=== PATIENT | male | born 1990 | race Caucasian/White ===

== ENCOUNTER 2024-01-14 08:34 | Emergency (ER) | payer OTHER, SELFPAY ==
--- NOTE | ~2024-01-14 | XR_ITS ---
[[id number] ] INDICATION: Right lower rib pain TECHNIQUE: Frontal projection of the upper right ribs, frontal projection of the lower ] ribs, obliqu e projection of all the right ribs, frontal inspiratory chest x-ray for interpretation. FINDINGS: There are no displaced rib fractures identified. There are no soft tissue abnormality see n. The lungs are clear. IMPRESSION: 1:No acute displaced rib fractures. Reviewed, dictated and finalized at location B.
--- NOTE | 2024-01-14 08:40 | ED.CHESTPAIN ---
HPI - Chest Pain General Chief Complaint: Back Pain/Injury Stated Complaint: Right Rib Pain Time Seen by Provider: 01/14/24 08:50 Source: patient Mode of arrival: ambulatory Limitations: no limitations History of Present Illness HPI narrative: Jose is a 33-year-old male patient presenting to the clinic today with complaints of right-sided rib pain with inspiration. He reports his symptoms started on Monday. Feels as though this is like a side stitched. Feels dull and achy when he takes a deep breath. Denies any shortness of breath or chest pain. Denies any known injury. States he was exercising earlier in the day when the symptoms started but does not feel as though it is related. Related Data Home Medications Medication Instructions Recorded Confirmed No Home Medications 01/14/24 01/14/24 Allergies Allergy/AdvReac Type Severity Reaction Status Date / Time No Known Allergies Allergy Mild Verified 01/14/24 09:08 Review of Systems Review of Systems: Pertinent positives per HPI. Patient denies any fever, chills, rash, headache, visual changes, dizziness, cough, runny nose, sore throat, shortness of breath, chest pain, palpitations, nausea, vomiting, diarrhea, constipation, abdominal pain, or any urinary issues. PMFSH Comments At the time of my signature, I reviewed and agree with the nursing past medical, surgical, social, and family history. There is no relevant family history pertinent to the patient complaint. Exam Narrative: General: Well-developed, well nourished, in no apparent distress Head: Normocephalic, atraumatic. Chest wall: Even rise and fall of the chest wall with respirations, nontender to palpation, no bruising or swelling noted Cardio: Regular rate and rhythm, s1 and s2 normal, no murmur appreciated. Resp: Clear to auscultation bilaterally, no rhonchi, rales, wheezing or rubs. Extremities: No deformity, no edema, no cyanosis, capillary refill less than 2 seconds, peripheral pulses palpable and strong. Integumentary: [place], warm, and dry, intact without lesion, no rashes. Course Course Emergency Course: Portions of this record may have been created with voice recognition software. Level of Care: Express Care Visit Vital Signs Vital signs: Vital signs reviewed MDM - Chest Pain MDM Narrative Medical decision making narrative: At the time of visit patient is resting comfortably on the exam table. Patient appears to be nontoxic. Diagnostics: X-ray of the right ribs with a PA chest was performed and is negative for any acute fractures or acute cardiopulmonary process Plan: I suspect patient has chest wall pain-likely due to strain. Supportive measures were discussed with the patient and they voiced understanding discharge instructions and agrees to treatment plan. Return precautions reviewed Differential Diagnosis Differential diagnosis: Likely fracture of rib, pneumothorax, atypical chest pain and costochondritis Discharge Plan Discharge Clinical Impression: Acute chest wall pain Patient Disposition: Home, Self-Care Condition: Stable Instructions: Antibiotic Form, Chest Wall Pain (ED) Additional Instructions: Chest x-ray with you lateral ribs is negative for any sign of rib fractures or acute cardiopulmonary process Increase fluids and stay well hydrated May splint the area when coughing, deep breathing, or sneezing May take Tylenol/Motrin as needed for pain May apply a lidocaine patch, Aspercreme, or blue emu to the affected area May use heat pack or ice pack to the affected area Follow-up with your primary care doctor in 1 week if symptoms persist Go to the emergency room if you develop worsening symptoms-fever not controlled by Tylenol or Motrin, chest pain, shortness of breath, lethargy, weakness, fatigue, or any other concerning symptoms Prescriptions: No Action No Home Medications Follow-up/Referrals: Dangelo,Sweetie
[2024-01-14 08:44] VITALS: BP 132/73; PULSE 63; RESP 16; TEMP 36.6; O2SAT 100
== END 2024-01-14 09:14 | disposition home or self-care (01) ==
PROVIDERS: Emergency Provider Nurse Practitioner Family; PCP Nurse Practitioner
DX: R07.89 Other chest pain (principal)
CPT/HCPCS: 71101; 99213; G0463